=== PATIENT | male | born 1960 | race Caucasian/White ===

== ENCOUNTER → 2018-02-10 08:50 | Outpatient (CLI) | payer OTHER, SELFPAY ==
[2018-02-10 09:55] LABS: Influenza A and B by PCR Rapid Negative (Negative)
== END ==
PROVIDERS: Family Provider Internal Medicine; PCP Internal Medicine; Visit Provider Physician Assistant
DX: J06.9 Acute upper respiratory infection, unspecified (principal)
CPT/HCPCS: 87400

== ENCOUNTER → 2018-02-13 09:25 | Outpatient (CLI) | payer OTHER, SELFPAY | PROVIDERS: Family Provider Internal Medicine; PCP Internal Medicine; Visit Provider Physician Assistant | DX: H57.8 Other specified disorders of eye and adnexa (principal) | CPT/HCPCS: 87070; 87075; 87077; 87147; 87186; 87205 ==

== ENCOUNTER 2019-08-15 15:08 | Emergency (ER) | payer OTHER, SELFPAY ==
[2019-08-15 15:14] VITALS: BP 126/76; PULSE 80; RESP 20; TEMP 36.4; O2SAT 96
[2019-08-15 16:47] LABS: Add Manual Diff / Slide Review NO; Basophils Absolute Auto 100 /uL (0-100); Basophils Percent Auto 0.7 % (0-2); Eosinophils Absolute Auto 0 /uL (0-450); Eosinophils Percent Auto 0.5 % (2-4); Hematocrit 46.6 % (41-53); Hemoglobin 15.8 g/dL (13.5-17.5); Lymphocytes Absolute Auto 700 /uL (1100-4500); Lymphocytes Percent Auto 8.8 % (25-40); Mean Corpuscular HGB Conc 33.9 % (30-36); Mean Corpuscular Hemoglobin 30.5 PG (26-34); Mean Corpuscular Volume 89.9 fL (80-100); Monocytes Absolute Auto 1200 /uL (0-900); Monocytes Percent Auto 14.4 % (3-14); Neutrophils Absolute Auto 6500 /uL (1500-7000); Neutrophils Percent Auto 75.6 % (50-75); Platelet Count 187 X10^3/uL (150-400); Red Blood Cell Count 5.18 X10^6/uL (4.5-5.9); Red Cell Distribution Width 14.5 % (11.6-14.8); White Blood Cell Count 8.5 X10^3/uL (4.5-11.0)
[2019-08-15 16:59] LABS: Alanine Aminotransferase 29 IU/L (<50); Albumin 4.1 g/dL (3.5-5.0); Albumin Globulin Ratio 1.5 (1.0-2.8); Alkaline Phosphatase 75 U/L (38-126); Amylase 80 U/L (30-110); Aspartate Aminotransferase 32 IU/L (17-59); Bilirubin Total 0.9 mg/dL (0.2-1.3); Blood Urea Nitrogen 24 mg/dL (9-20); Calcium 9.1 mg/dL (8.4-10.2); Carbon Dioxide 28 mmol/L (22-32); Chloride 101 mmol/L (98-107); Estimated Glomerular Filt Rate > 60.0 mL/min (>60); Globulin 2.8 g/dL (1.7-4.1); Glucose 113 mg/dL (80-110); HEMOLYSIS 23 (0-50); Lipase 46 U/L (23-300); Potassium 3.7 mmol/L (3.4-5.1); Sodium 139 mmol/L (137-145); Total Protein 6.9 g/dL (6.3-8.2)
[2019-08-15 17:30] VITALS: BP 127/76; PULSE 64; RESP 16; O2SAT 96
[2019-08-15] MEDS: SODIUM CHLORIDE 0.9% 1,000 ML 1000 ML IV (17:31)
[2019-08-15 18:00] VITALS: BP 121/81; PULSE 66; RESP 18; O2SAT 98
[2019-08-15 18:40] LABS: Bacteria Urine None Seen; RBC Urine None Seen (0-5/HPF); WBC Urine None Seen (0-5/HPF)
[2019-08-15 18:47] LABS: Amorphous Sediment Urine 1+; Culture Indicated Urine Cult Not Indicated; Mucus Urine 1+ (Negative)
[2019-08-15 18:50] VITALS: BP 120/73; PULSE 62; RESP 16; O2SAT 98
--- NOTE | 2019-08-15 19:49 | ED_ITS ---
HPI - Abdominal Pain <KATE Juarez - Last Filed: 08/15/19 19:59> General Chief Complaint: Abdominal Pain Stated Complaint: L side abd pain- sent from [place] Time Seen by Provider: 08/15/19 16:22 Source: patient Mode of arrival: Ambulatory Limitations: no limitations History of Present Illness HPI narrative: The patient is a 59-year-old male nonsmoker with history of diverticulitis who presents with a chief complaint of ?I think I have diverticulitis again.He states he had some loose stools yesterday and then started having some left lower quadrant pain today. He denies any fevers nausea vomiting. He denies any chest pain or shortness of breath. He has not taken anything for pain. He states that he has had 3-4 episodes of diverticulitis. Related Data Home Medications Medication Instructions Recorded Confirmed gabapentin 300 mg capsule 600 mg PO BEDTIME cap 02/10/18 02/13/18 omeprazole 40 mg capsule,delayed 40 mg PO DAILY 02/10/18 02/13/18 release paroxetine HCl 20 mg tablet 20 mg PO DAILY 02/10/18 02/13/18 simvastatin 40 mg tablet 40 mg PO QAM 02/10/18 02/13/18 tadalafil 10 mg tablet 10 mg PO ONCE 02/10/18 02/13/18 triamterene 37.5 1 tab PO DAILY 02/10/18 02/13/18 mg-hydrochlorothiazide 25 mg tablet Previous Rx's Medication Instructions Recorded albuterol sulfate [Ventolin HFA] 2 puff INH Q4HP PRN #1 inh 09/07/16 amoxicillin 500 mg capsule 500 mg PO TID #30 cap 02/13/18 ciprofloxacin HCl [Cipro] 500 mg PO BID #20 tab 08/15/19 metronidazole [Flagyl] 500 mg PO TID #30 tab 08/15/19 ondansetron 4 mg PO Q6H PRN #20 tab 08/15/19 Allergies Allergy/AdvReac Type Severity Reaction Status Date / Time erythromycin base Allergy Mild ITCHING, Verified 02/13/18 08:22 [ERYTHROMYCIN BASE] ALL OVER BODY RESTLESSNESS Sulfa (Sulfonamide Allergy Mild ITCHING, Verified 02/13/18 08:22 Antibiotics) ALL OVER [SULFA (SULFONAMIDE RESTLESSNESS ANTIBIOTICS)] Review of Systems <KATE Juarez - Last Filed: 08/15/19 19:59> Review of Systems Narrative: GENERAL: Denies chills, fatigue, malaise, fever, sweats. HEENT: Denies sinus pain, ear pain, sore throat, difficulty swallowing, dizziness. RESPIRATORY: Denies dyspnea, cough, wheezing, hemoptysis, sputum. CARDIOVASCULAR: Denies chest pain, palpitations, orthopnea, edema, GASTROINTESTINAL: See HPI : Denies dysuria, frequency, incontinence, hematuria, urinary retention. MUSCULOSKELETAL: denies weakness, joint pain, or bony pain SKIN: Denies rash, skin lesions, or other NEUROLOGIC: Denies weakness, headache, numbness, change in speech, confusion, seizures, incoordination. PSYCHIATRIC: No concerning psychosocial issues. 12 point review of systems is negative except for those stated above Patient History <Charlene Arzate [facility] - Last Filed: 08/15/19 19:59> Social History Smoking Status: Never smoker alcohol intake frequency: 0-2 drinks per day Exam <Charlene Arzate [facility] - Last Filed: 08/15/19 19:59> Narrative Exam Narrative: GENERAL: This is a well-nourished, well-developed patient, no acute distress HEAD: Atraumatic. Normocephalic. No temporal or scalp tenderness. EYES: Pupils equal round and reactive. Extraocular motions intact. No scleral icterus. No injection or drainage. ENT: Nose without bleeding, purulent drainage or septal hematoma. Throat without erythema, tonsillar hypertrophy or exudate. Uvula midline. Airway patent. NECK: Trachea midline. No JVD or lymphadenopathy. Supple, nontender, no meningeal signs. CARDIOVASCULAR: Regular rate and rhythm without murmurs, gallops, or rubs. RESPIRATORY: Clear to auscultation. Breath sounds equal bilaterally. No wheezes, rales, or rhonchi. GASTROINTESTINAL: Abdomen soft, obese, tenderness to palpation left lower quadrant. nondistended. No hepato-splenomegaly, or palpable masses. No guarding. No pain to McBurney's point. Negative Thomas's EXTREMITIES: No clubbing, cyanosis, or edema. No joint tenderness, effusion, or edema noted. BACK: Nontender without deformity or crepitance. No flank tenderness. NEURO: AOx3. SKIN: No rash or erythema. Initial Vital Signs Initial Vital Signs: Vital Signs Temperature 97.5 F L 08/15/19 15:14 Pulse Rate 80 08/15/19 15:14 Respiratory Rate 20 08/15/19 15:14 Blood Pressure 126/76 08/15/19 15:14 Pulse Oximetry 96 08/15/19 15:14 <Angela Weiner DO - Last Filed: 08/23/19 09:07> Initial Vital Signs Initial Vital Signs: Vital Signs Temperature 97.5 F L 08/15/19 15:14 Pulse Rate 80 08/15/19 15:14 Respiratory Rate 20 08/15/19 15:14 Blood Pressure 126/76 08/15/19 15:14 Pulse Oximetry 96 08/15/19 15:14 Course <KATE Juarez - Last Filed: 08/15/19 19:59> Orders Ordered: Discontinued Medications Hydrocodone Bitart/Acetaminophen (Vicodin 5/325 Prepack) 1 bottle MISC SEEINSTR ONE Stop: 08/15/19 19:26 Last Admin: 08/15/19 19:55 Dose: 1 bottle Documented by: ELOISA Ciprofloxacin (Cipro) 500 mg PO NOW ONE Stop: 08/15/19 19:26 Last Admin: 08/15/19 19:56 Dose: 500 mg Documented by: ELOISA Sodium Chloride (Normal Saline 0.9%) 1,000 mls @ 1,000 mls/hr IV BOLUS ONE Stop: 08/15/19 18:13 Last Infusion: 08/15/19 19:37 Dose: 0 mls/hr Documented by: Admin: 08/15/19 17:31 Dose: 1,000 mls/hr Documented by: CYNDI Metronidazole (Metronidazole) 500 mg PO NOW ONE Stop: 08/15/19 19:26 Last Admin: 08/15/19 19:56 Dose: 500 mg Documented by: ELOISA Ondansetron HCl (Zofran Odt Prepack) 1 bottle MISC SEEINSTR ONE Stop: 08/15/19 19:26 Last Admin: 08/15/19 19:56 Dose: 1 bottle Documented by: ELOISA Vital Signs Vital signs: Vital Signs - 8 hr 08/15/19 15:14 08/15/19 17:30 08/15/19 18:00 Temperature 97.5 F L Pulse Rate 80 64 66 Respiratory Rate 20 16 18 Blood Pressure 126/76 Blood Pressure [Left Arm] 127/76 121/81 Pulse Oximetry 96 96 98 08/15/19 18:50 Temperature Pulse Rate 62 Respiratory Rate 16 Blood Pressure Blood Pressure [Left Arm] 120/73 Pulse Oximetry 98 <Angela Weiner DO - Last Filed: 08/23/19 09:07> Orders Ordered: Discontinued Medications Hydrocodone Bitart/Acetaminophen (Vicodin 5/325 Prepack) 1 bottle MISC SEEINSTR ONE Stop: 08/15/19 19:26 Last Admin: 08/15/19 19:55 Dose: 1 bottle Documented by: ELOISA Ciprofloxacin (Cipro) 500 mg PO NOW ONE Stop: 08/15/19 19:26 Last Admin: 08/15/19 19:56 Dose: 500 mg Documented by: ELOISA Sodium Chloride (Normal Saline 0.9%) 1,000 mls @ 1,000 mls/hr IV BOLUS ONE Stop: 08/15/19 18:13 Last Infusion: 08/15/19 19:37 Dose: 0 mls/hr Documented by: Admin: 08/15/19 17:31 Dose: 1,000 mls/hr Documented by: CYNDI Metronidazole (Metronidazole) 500 mg PO NOW ONE Stop: 08/15/19 19:26 Last Admin: 08/15/19 19:56 Dose: 500 mg Documented by: ELOISA Ondansetron HCl (Zofran Odt Prepack) 1 bottle MISC SEEINSTR ONE Stop: 08/15/19 19:26 Last Admin: 08/15/19 19:56 Dose: 1 bottle Documented by: ELOISA Vital Signs Vital signs: Vital Signs - 8 hr 08/15/19 15:14 08/15/19 17:30 08/15/19 18:00 Temperature 97.5 F L Pulse Rate 80 64 66 Respiratory Rate 20 16 18 Blood Pressure 126/76 Blood Pressure [Left Arm] 127/76 121/81 Pulse Oximetry 96 96 98 08/15/19 18:50 Temperature Pulse Rate 62 Respiratory Rate 16 Blood Pressure Blood Pressure [Left Arm] 120/73 Pulse Oximetry 98 MDM - Abdominal Pain <KATE Juarez - Last Filed: 08/15/19 19:59> Lab Data Result diagrams: 08/15/19 16:35 08/15/19 16:35 Labs: Lab Results 08/15/19 08/15/19 08/15/19 Range/Units 16:35 16:35 16:35 WBC 8.5 (4.5-11.0) X10^3/uL RBC 5.18 (4.5-5.9) X10^6/uL Hgb 15.8 (13.5-17.5) g/dL Hct 46.6 (41-53) % MCV 89.9 (80-100) fL MCH 30.5 (26-34) PG MCHC 33.9 (30-36) % RDW 14.5 (11.6-14.8) % Plt Count 187 (150-400) X10^3/uL Neut % (Auto) 75.6 H (50-75) % Lymph % (Auto) 8.8 L (25-40) % [place] % (Auto) 14.4 H (3-14) % Eos % (Auto) 0.5 L (2-4) % Baso % (Auto) 0.7 (0-2) % Neut # (Auto) 6500 (8843-8425) /uL Lymph # (Auto) 700 L (9210-8674) /uL [place] # (Auto) 1200 H (0-900) /uL Eos # (Auto) 0 (0-450) /uL Baso # (Auto) 100 (0-100) /uL Sodium 139 (137-145) mmol/L Potassium 3.7 (3.4-5.1) mmol/L Chloride 101 (98-107) mmol/L Carbon Dioxide 28 (22-32) mmol/L BUN 24 H (9-20) mg/dL Creatinine 1.20 (0.66-1.25) mg/dL Estimated GFR > 60.0 (>60) mL/min BUN/Creatinine Ratio 20.0 (6-22) Glucose 113 H (80-110) mg/dL Calcium 9.1 (8.4-10.2) mg/dL Total Bilirubin 0.9 (0.2-1.3) mg/dL AST 32 (17-59) IU/L ALT 29 (<50) IU/L Alkaline Phosphatase 75 (38-126) U/L Total Protein 6.9 (6.3-8.2) g/dL Albumin 4.1 (3.5-5.0) g/dL Globulin 2.8 (1.7-4.1) g/dL Albumin/Globulin Ratio 1.5 (1.0-2.8) Amylase 80 (30-110) U/L Lipase 46 (23-300) U/L Urine RBC (0-5/HPF) Urine WBC (0-5/HPF) Amorphous Sediment Urine Bacteria (None) Urine Mucus (Negative) Ur Culture Indicated? 08/15/19 Range/Units 18:20 WBC (4.5-11.0) X10^3/uL RBC (4.5-5.9) X10^6/uL Hgb (13.5-17.5) g/dL Hct (41-53) % MCV (80-100) fL MCH (26-34) PG MCHC (30-36) % RDW (11.6-14.8) % Plt Count (150-400) X10^3/uL Neut % (Auto) (50-75) % Lymph % (Auto) (25-40) % [place] % (Auto) (3-14) % Eos % (Auto) (2-4) % Baso % (Auto) (0-2) % Neut # (Auto) (4094-3968) /uL Lymph # (Auto) (5008-4202) /uL [place] # (Auto) (0-900) /uL Eos # (Auto) (0-450) /uL Baso # (Auto) (0-100) /uL Sodium (137-145) mmol/L Potassium (3.4-5.1) mmol/L Chloride (98-107) mmol/L Carbon Dioxide (22-32) mmol/L BUN (9-20) mg/dL Creatinine (0.66-1.25) mg/dL Estimated GFR (>60) mL/min BUN/Creatinine Ratio (6-22) Glucose (80-110) mg/dL Calcium (8.4-10.2) mg/dL Total Bilirubin (0.2-1.3) mg/dL AST (17-59) IU/L ALT (<50) IU/L Alkaline Phosphatase (38-126) U/L Total Protein (6.3-8.2) g/dL Albumin (3.5-5.0) g/dL Globulin (1.7-4.1) g/dL Albumin/Globulin Ratio (1.0-2.8) Amylase (30-110) U/L Lipase (23-300) U/L Urine RBC None seen (0-5/HPF) Urine WBC None seen (0-5/HPF) Amorphous Sediment 1+ Urine Bacteria None seen (None) Urine Mucus 1+ H (Negative) Ur Culture Indicated? Cult not indicated Point of care testing: Urine Dip Bedside Urine Glucose Negative Bedside Urine Bilirubin - Negative Bedside Urine Ketone - Negative Urine Specific [place] 1.015 Bedside Urine Occult Blood - Negative Bedside Urine pH 6 Bedside Urine Protein + 30 Bedside Urine Urobilinogen - Negative Bedside Urine Nitrite - Negative Bedside Urine Leukocytes - Negative Esterase MDM Narrative Medical decision making narrative: The patient is a 5-year-old male with history of diverticulitis who presents with a chief complaint of left lower quadrant pain. He states he has a history of diverticulitis and feels as though this is the same. Lab work is stable, no leukocytosis. Patient declined imaging today. I discussed that there can be complications from diverticulitis such as abscess, perforation or other etiologies that causes abdominal pain. However he persistently declined imaging, so preemptively treat him for diverticulitis. Urine shows no signs of infection. No placed him on Flagyl and Cipro. Discussed risk of tendon issues with Cipro. Patient does not want pain medication prescription, but states he will use a take-home pack of [place]. Discussed that this can be constipating and sedating. Did discuss at length strict return precautions to the emergency department including fever, worsening abdominal pain etc, especially given that he declined imaging today. Encourage PCP follow-up. Patient has no questions or concerns upon discharge and states understanding of return precautions as well as follow-up care. <Angela Weiner, DO - Last Filed: 08/23/19 09:07> Lab Data Labs: Lab Results 08/15/19 08/15/19 08/15/19 Range/Units 16:35 16:35 16:35 WBC 8.5 (4.5-11.0) X10^3/uL RBC 5.18 (4.5-5.9) X10^6/uL Hgb 15.8 (13.5-17.5) g/dL Hct 46.6 (41-53) % MCV 89.9 (80-100) fL MCH 30.5 (26-34) PG MCHC 33.9 (30-36) % RDW 14.5 (11.6-14.8) % Plt Count 187 (150-400) X10^3/uL Neut % (Auto) 75.6 H (50-75) % Lymph % (Auto) 8.8 L (25-40) % [place] % (Auto) 14.4 H (3-14) % Eos % (Auto) 0.5 L (2-4) % Baso % (Auto) 0.7 (0-2) % Neut # (Auto) 6500 (8354-2003) /uL Lymph # (Auto) 700 L (3434-8958) /uL [place] # (Auto) 1200 H (0-900) /uL Eos # (Auto) 0 (0-450) /uL Baso # (Auto) 100 (0-100) /uL Sodium 139 (137-145) mmol/L Potassium 3.7 (3.4-5.1) mmol/L Chloride 101 (98-107) mmol/L Carbon Dioxide 28 (22-32) mmol/L BUN 24 H (9-20) mg/dL Creatinine 1.20 (0.66-1.25) mg/dL Estimated GFR > 60.0 (>60) mL/min BUN/Creatinine Ratio 20.0 (6-22) Glucose 113 H (80-110) mg/dL Calcium 9.1 (8.4-10.2) mg/dL Total Bilirubin 0.9 (0.2-1.3) mg/dL AST 32 (17-59) IU/L ALT 29 (<50) IU/L Alkaline Phosphatase 75 (38-126) U/L Total Protein 6.9 (6.3-8.2) g/dL Albumin 4.1 (3.5-5.0) g/dL Globulin 2.8 (1.7-4.1) g/dL Albumin/Globulin Ratio 1.5 (1.0-2.8) Amylase 80 (30-110) U/L Lipase 46 (23-300) U/L Urine RBC (0-5/HPF) Urine WBC (0-5/HPF) Amorphous Sediment Urine Bacteria (None) Urine Mucus (Negative) Ur Culture Indicated? 08/15/19 Range/Units 18:20 WBC (4.5-11.0) X10^3/uL RBC (4.5-5.9) X10^6/uL Hgb (13.5-17.5) g/dL Hct (41-53) % MCV (80-100) fL MCH (26-34) PG MCHC (30-36) % RDW (11.6-14.8) % Plt Count (150-400) X10^3/uL Neut % (Auto) (50-75) % Lymph % (Auto) (25-40) % [place] % (Auto) (3-14) % Eos % (Auto) (2-4) % Baso % (Auto) (0-2) % Neut # (Auto) (7794-4280) /uL Lymph # (Auto) (0495-0355) /uL [place] # (Auto) (0-900) /uL Eos # (Auto) (0-450) /uL Baso # (Auto) (0-100) /uL Sodium (137-145) mmol/L Potassium (3.4-5.1) mmol/L Chloride (98-107) mmol/L Carbon Dioxide (22-32) mmol/L BUN (9-20) mg/dL Creatinine (0.66-1.25) mg/dL Estimated GFR (>60) mL/min BUN/Creatinine Ratio (6-22) Glucose (80-110) mg/dL Calcium (8.4-10.2) mg/dL Total Bilirubin (0.2-1.3) mg/dL AST (17-59) IU/L ALT (<50) IU/L Alkaline Phosphatase (38-126) U/L Total Protein (6.3-8.2) g/dL Albumin (3.5-5.0) g/dL Globulin (1.7-4.1) g/dL Albumin/Globulin Ratio (1.0-2.8) Amylase (30-110) U/L Lipase (23-300) U/L Urine RBC None seen (0-5/HPF) Urine WBC None seen (0-5/HPF) Amorphous Sediment 1+ Urine Bacteria None seen (None) Urine Mucus 1+ H (Negative) Ur Culture Indicated? Cult not indicated Point of care testing: Urine Dip Bedside Urine Glucose Negative Bedside Urine Bilirubin - Negative Bedside Urine Ketone - Negative Urine Specific [place] 1.015 Bedside Urine Occult Blood - Negative Bedside Urine pH 6 Bedside Urine Protein + 30 Bedside Urine Urobilinogen - Negative Bedside Urine Nitrite - Negative Bedside Urine Leukocytes - Negative Esterase Discharge Plan Departure Patient Disposition: Home Clinical Impression: Diverticulitis Abdominal pain Qualifiers: Abdominal location: left lower quadrant Qualified Code(s): R10.32 - Left lower quadrant pain Discharge Date/Time: 08/15/19 20:06 Instructions: Diverticulitis, DI for Diverticulitis, DI for Abdominal Pain- Adult Activity Restrictions/Additional Instructions: I have sent 3 prescriptions to [facility] on [address]. This includes to antibiotics as well as a nausea medication. We have given you a take-home pack of [place]. You have been given a take-home pack narcotic medications. While on these medications you cannot drive or operate heavy machinery. Additionally you cannot sign legal documents or perform any duties such as this. Many people get constipated on narcotic medications so it would be advisable to discuss stool softeners with the pharmacist when you rate supervisor your prescription. Please remember that since he elected to not have imaging today for your diverticulitis, please come back to the emergency department if you have any acute concerns or changes such as inability keep down fluids, high fevers etc Please follow up with primary care provider in the next few days. Prescriptions: New ciprofloxacin HCl [Cipro] 500 mg tablet 500 mg PO BID Qty: 20 RF: 0 metronidazole [Flagyl] 500 mg tablet 500 mg PO TID Qty: 30 RF: 0 ondansetron 4 mg tablet,disintegrating 4 mg PO Q6H PRN (Reason: nausea and vomiting) Qty: 20 RF: 0 No Action paroxetine HCl 20 mg tablet 20 mg PO DAILY RF: 0 tadalafil [Cialis] 10 mg tablet 10 mg PO ONCE RF: 0 triamterene-hydrochlorothiazid 37.5-25 mg tablet 1 tab PO DAILY RF: 0 omeprazole 40 mg capsule,delayed release(DR/EC) 40 mg PO DAILY RF: 0 gabapentin 300 mg capsule 600 mg PO BEDTIME RF: 0 simvastatin 40 mg tablet 40 mg PO QAM RF: 0 amoxicillin 500 mg capsule 500 mg PO TID Qty: 30 RF: 0 albuterol sulfate [Ventolin HFA] 90 MCG/PUFF HFA aerosol inhaler 2 puff INH Q4HP PRNQty: 1 RF: 0 Referrals: Ronnie Dugan MD [Primary Care Provider] -
[2019-08-15] MEDS: HYDROCODONE/ACET 5/325 PREPACK 1 BOTTLE MISC (19:55)
[2019-08-15] MEDS: metroNIDAZOLE 250 MG TABLET 500 MG PO (19:56)
[2019-08-15] MEDS: CIPROFLOXACIN 500 MG TABLET PO (19:56)
[2019-08-15] MEDS: ONDANSETRON 4 MG ODT PREPACK 1 BOTTLE MISC (19:56)
[2019-08-15 20:06] VITALS: BP 122/77; PULSE 59; RESP 16; O2SAT 99
== END 2019-08-15 20:06 | disposition home or self-care (01) ==
PROVIDERS: Emergency Medicine; Emergency Provider Nurse Practitioner Family; Family Provider Internal Medicine; PCP Internal Medicine
DX: K57.92 Diverticulitis of intestine, part unspecified, without perforation or abscess without bleeding (principal); R10.32 Left lower quadrant pain
CPT/HCPCS: 36415; 80053; 81003; 81015; 82150; 83690; 85025; 99283

== ENCOUNTER → 2019-08-31 08:00 | Outpatient (CLI) | payer OTHER, SELFPAY ==
[2019-08-31 09:21] LABS: Cholesterol 252 mg/dL (140-199); HDL Cholesterol 38 mg/dL (40-60); LDL Cholesterol Calculated 189 mg/dL (<100); Triglycerides 126 mg/dL (35-150)
== END ==
PROVIDERS: PCP Internal Medicine; Visit Provider Internal Medicine
DX: E78.00 Pure hypercholesterolemia, unspecified (principal)
CPT/HCPCS: 36415; 80061

== ENCOUNTER → 2019-10-21 14:49 | Outpatient (CLI) | payer OTHER, SELFPAY ==
--- NOTE | 2019-10-21 14:54 | DIET.PN ---
Dietary Progress Note Assessment: 59y M s/p gastric banding 7y ago went from 315# down to 275# but now back up to 317#. 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 HT: WT: 317# BMI: 28yo noticed was gaining wt @220# got down to 190# through 4d/w workouts and slimfast PA: has been on and off with working out at a gym, has not joined gym since moving to the area 5y ago but found success in the past going 4d/w. Labs: TC 252 H, LDL 189 H, HDL 38 L Usual Day: 6am wakes, drives to work 7am [employer]:sausage burrito, hash brown, large coke, 2 chocolate chip cookies 830 comes home, watches tv- cheez-its, salted mixed nuts, jalapeno cheddar cheetos, kitkat or reeses pb cup sometimes naps leftovers, fish and chips, tries to eat at home if possible doesn't often snack in afternoon if out doing errands with : [employer], [employer], [employer] for lunch Dinner 5pm: stir winters with chicken, ground beef tacos, spaghetti, 10pm watches tv in evening until 2am- rarely snacks in bed, usually get 4hrs sleep ideal 8hrs sleep 11pm-7am rich foods, caffeine, and spicy keep him awake at night Nutrition Diagnosis: obesity r/t undesirable food choices and emotional eating aeb pt eats fast food daily, has dessert and full calorie soda with breakfast, pt reports emotional eating to deal with unemployment and son who is recovering addict, pt currently >300# despite gastric banding. Interventions: Got hx of pt weight and eating habits. Discussed emotional eating. Introduced pt to Hunger Scale, how to use tool to assess physiological hunger. Introduced Mindful Eating concept, discussed eye, ear, heart hungers etc, pt resonated with many of them. Discussed survival reward center of brain and how it was a useful tool in the distant path to identify foods containing glucose, but now we over stimulate that center with easy to acquire processed foods. Pt Goals 1. In the next two weeks, Jonathan will go to [employer] and do a trial membership to see if it is a good fit. 2. 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 3. To reduce caloric intake, Jonathan will do diet or stevia sweetened sodas instead of full sugar sodas, and drink more cold water. 4. To support sleep hygiene, Jonathan will get 8 hours of sleep each night and turn off the television for sleep. 5. Pt will use hunger scale and mindful eating handout to increase awareness of emotional eating habits. Monitoring/Evaluations: f/u in 2 weeks to problem solve snacks, address barriers, create physical activity plan, do sugar cube activity, possible phone liban?
== END ==
PROVIDERS: PCP Internal Medicine; Referring Provider Internal Medicine; Visit Provider Internal Medicine
DX: E66.09 Other obesity due to excess calories (principal); Z98.84 Bariatric surgery status; Z71.3 Dietary counseling and surveillance
CPT/HCPCS: 97802

== ENCOUNTER → 2019-11-02 14:05 | Outpatient (CLI) | payer OTHER, SELFPAY ==
--- NOTE | 2019-11-02 14:09 | DIET.PN ---
Dietary Progress Note Assessment: 59y M c morbid obesity here for f/u appt for weight loss. Pt has LE edema and takes medication, wants to lose weight to reduce stress on body. Was in [place] -Fri of last week so did not make it to check out [employer] gym. Walking more than usual because in Switched to calorie free beverages, slipped up just once with a [employer] Sleeping habits have improved, turning tv off at 11pm instead of staying up until 2am 20 minute walk with dog daily, working on walking with WT: 317# Nutrition Diagnosis: obesity r/t undesirable food choices and emotional eating aeb pt eats fast food daily, has dessert and full calorie soda with breakfast, pt reports emotional eating to deal with unemployment and son who is recovering addict, pt currently >300# despite gastric banding. Interventions: EER: 2,000 kcal and 100g PRO/d Goals: 1. Jonathan will go to [employer] at 10am on Friday, Nov 03, 2019 to see if a good fit. 2. To attain 150 minutes physical activity per day, Jonathan will walk dog 20 min daily plus one other physical activity 7 days per week. 3. To support nourishing body and reducing weight, Jonathan will start cooking more at home to reduce amount of fast food he eats. 4. Jonathan will start tracking food intake, will try to stick to 2,000 kcals/d and log hunger before and after each eating occasion. Monitoring/Evaluations: f/u 3w
== END ==
PROVIDERS: PCP Internal Medicine; Referring Provider Internal Medicine; Visit Provider Internal Medicine
DX: E66.01 Morbid (severe) obesity due to excess calories (principal); R60.0 Localized edema; Z98.84 Bariatric surgery status; Z71.3 Dietary counseling and surveillance
CPT/HCPCS: 97802

== ENCOUNTER → 2019-11-18 09:49 | Outpatient (CLI) | payer OTHER, SELFPAY ==
[2019-11-18 10:39] LABS: Cholesterol 160 mg/dL (140-199); HDL Cholesterol 45 mg/dL (40-60); LDL Cholesterol Calculated 98 mg/dL (<100); Triglycerides 83 mg/dL (35-150)
== END ==
PROVIDERS: PCP Internal Medicine; Referring Provider Internal Medicine; Visit Provider Internal Medicine
DX: E78.2 Mixed hyperlipidemia (principal)
CPT/HCPCS: 36415; 80061

== ENCOUNTER → 2020-02-22 14:53 | Outpatient (CLI) | payer OTHER, SELFPAY ==
--- NOTE | 2020-02-22 15:00 | DIET.PN ---
Dietary Progress Note Assessment: f/u c 59y M for help c weight loss r/t morbid obesity and chronic pain. B: 2 Bob Antolin breakfast wraps, grapes then stress eats, 1 cup high carb snack mix over 15 minutes, couple cookies, diet soda L: been trying to have salads D: 630-7pm does meal planning for dinners each week with , Swati, tried pollack burgers having difficulty falling asleep at night. HT: 6'1 WT: 301# Weight Goal: 250# Interventions: 1. Look through cabinets and fridge and remove or finish all foods which are triggers for overeating and stress snacking. 2. Take 10 minute walking/biking break everyday. 3. Work on healthy snacks for midmorning (celery c low fat cream cheese or peanut butter) 4. Sign up at [facility] gym to do elliptical 20-30 min and 10-20 min weight training Monitoring/Evaluations: f/u in 2w for problem solving and to check weight
== END ==
PROVIDERS: PCP Internal Medicine; Referring Provider Internal Medicine; Visit Provider Internal Medicine
DX: E66.01 Morbid (severe) obesity due to excess calories (principal)

== ENCOUNTER → 2020-03-07 14:56 | Outpatient (CLI) | payer OTHER, SELFPAY ==
--- NOTE | 2020-03-07 15:53 | DIET.PN ---
Dietary Progress Note Assessment: f/u pt has much insight and is metacognating on the way he uses food as coping mechanism for stress. Pt read the ultraprocessed food article with great insight on how added sugar is hiding in food and the obesogenic effects of artificial sweeteners. Pt has been going on daily walks with his dog and trying to build a habit though is not yet comfortable going to gym because of pandemic. Pt is weight stable from last visit though has come a long way since last visit in being mindful about his food intake type and quantity. Pt has been snacking more on veggies and fruits over carbs like snack mix or chips. HT: 73 WT: 301# Monitoring/Evaluations: f/u in 2w to discuss plate method and added sugars
== END ==
PROVIDERS: PCP Internal Medicine; Referring Provider Internal Medicine; Visit Provider Internal Medicine
DX: E66.9 Obesity, unspecified (principal); Z68.39 Body mass index [BMI] 39.0-39.9, adult; Z71.3 Dietary counseling and surveillance
CPT/HCPCS: 97802

== ENCOUNTER → 2020-03-21 15:55 | Outpatient (CLI) | payer OTHER, SELFPAY ==
--- NOTE | 2020-03-21 16:57 | DIET.PN ---
Dietary Progress Note RD f/u for morbid obesity, today we invited Jonathan's to join our session to learn about balanced plate model and to problem solve shared meals. Discussed balanced meals and how to incorporate more fruits and vegetables. Targeted replacing some starchy vegetables and grains with fruit and nonstarchy vegetables. Jonathan and his discussed sinhala style meals and tacos with good alternatives such as using lettuce wrap instead of shells and not eating breadsticks with pasta meals. Jonathan thought to add an Swedish tomato and cucumber salad to his breakfast each day. They left the office with plan to go shopping for some vegetables on their way home. f/u in 2 weeks
== END ==
PROVIDERS: PCP Internal Medicine; Referring Provider Internal Medicine; Visit Provider Internal Medicine
DX: E66.01 Morbid (severe) obesity due to excess calories (principal); Z71.3 Dietary counseling and surveillance
CPT/HCPCS: 97802

== ENCOUNTER → 2020-04-11 14:57 | Outpatient (CLI) | payer OTHER, SELFPAY ==
--- NOTE | 2020-04-11 16:47 | DIET.PN ---
Dietary Progress Note RD f/u for morbid obesity s/p gastric banding. Pt has lost 9# since our last visit 3w ago (current wt: 292#). Pt looks visibly improved c thinning of face, arms, and legs, as well as less redness and puffiness, visible duran. Pt in good spirits today, happy about number on scale, but more so about the realizations he is having about his health and relationship to food. Pt reports many positive changes starting with honoring both his hunger and fullness, eating nutrient dense foods and filling half his plate c F/V. Pt spent weekend out and about with spouse which usually would include multiple fast food meals. Pt did eat breakfast out c but they split an omelet c hashbrowns and did not finish hashbrowns. Pt resisted purchasing candy at check outs of multiple stores with positive self reflection on past habits. Pt has been going outside for a walk with his dog daily between 9-10am for 15 min. Pt realizes this is not enough physical activity but is setting new habits and is happy with current progress. Pt has come to realizations that he does not need to eat kale or run marathons to be healthy, but to be more mindful of his intake and to nourish his body. Pt prepared homemade barnes salad for when his got home from work yesterday and used instapot to make perfect hard boiled eggs. Pt remarked his son ate a meal which pt had prepared for himself to eat later, but pt was happy that his son ate the healthy option and enjoyed it. Pt would like to continue meeting q3w c RD as weight loss continues to progress. Pt is making wonderful, lasting progress and having accelerated wt loss.
== END ==
PROVIDERS: PCP Internal Medicine; Referring Provider Internal Medicine; Visit Provider Internal Medicine
DX: E66.01 Morbid (severe) obesity due to excess calories (principal); Z98.84 Bariatric surgery status; Z71.3 Dietary counseling and surveillance
CPT/HCPCS: 97802

== ENCOUNTER → 2020-05-02 14:47 | Outpatient (CLI) | payer OTHER, SELFPAY ==
--- NOTE | 2020-05-02 14:54 | DIET.PN ---
Dietary Progress Note Pt is +7# since our last visit 3w ago. Pt is disappointed by this as he has had great momentum recently. Pt feels like he has been slipping into drinking soda and eating full meals out on weekends, has been having a jennie 5d/w and is unable to quantify the calories/carbs in it, has been eating fewer vegetables. Pt is consistent with taking 15 minute break to walk outside with his dog during the work week. Pt is eating far fewer processed foods than prior to our meetings. Pt has a treadmill and realizes increased physical activity is important to see change on the scale. Pt will carve out 30 minutes at the end of his workday to walk on treadmill and watch a show 5x/w. Pt will keep working on increasing vegetable intake to ensure he is not overeating high kcal foods at meals and snacks. Interventions: 1. Instructed pt on carbohydrate counting to assist in creating portion control limits for high carb foods like pasta, rice, and potatoes. Set pt to 45g CHO per meal with equivalent cup sizes. Pt will experiment with this. 2. Discussed importance of soluble fiber for health and weight regulation. Pt does not like many soluble fiber foods. Pt likes refried beans. Discussed adding vegetarian refried beans to taco nights or on a taco salad. 3. Encouraged pt on his process of weight loss and getting healthy. Discussed periods of weight loss actually being dismotivating because we feel we can participate in old patterns as reward. Pt is using gains and setbacks as insight to his cycling habits to develop lifelong strategies for weight management. F/u in 3w to assess progress and barriers.
== END ==
PROVIDERS: PCP Internal Medicine; Referring Provider Internal Medicine; Visit Provider Internal Medicine
DX: Z71.3 Dietary counseling and surveillance (principal)
CPT/HCPCS: 97803

== ENCOUNTER → 2020-05-26 14:28 | Outpatient (CLI) | payer OTHER, SELFPAY ==
[2020-05-26 16:02] LABS: Alanine Aminotransferase 20 IU/L (<50); Albumin 3.7 g/dL (3.5-5.0); Albumin Globulin Ratio 1.5 (1.0-2.8); Alkaline Phosphatase 70 U/L (38-126); Aspartate Aminotransferase 23 IU/L (17-59); BUN Creatinine Ratio 22.6 (6-22); Bilirubin Total 0.5 mg/dL (0.2-1.3); Blood Urea Nitrogen 19 mg/dL (9-20); Calcium 8.7 mg/dL (8.4-10.2); Carbon Dioxide 29 mmol/L (22-32); Chloride 106 mmol/L (98-107); Estimated Glomerular Filt Rate > 60.0 mL/min (>60); Globulin 2.4 g/dL (1.7-4.1); Glucose 129 mg/dL (80-110); HEMOLYSIS < 15 (0-50); Potassium 3.9 mmol/L (3.4-5.1); Sodium 141 mmol/L (137-145); Total Protein 6.1 g/dL (6.3-8.2)
== END ==
PROVIDERS: PCP Internal Medicine; Referring Provider Internal Medicine; Visit Provider Internal Medicine
DX: I10 Essential (primary) hypertension (principal); E78.00 Pure hypercholesterolemia, unspecified
CPT/HCPCS: 36415; 80053

== ENCOUNTER → 2020-06-02 08:43 | Outpatient (CLI) | payer OTHER, SELFPAY ==
[2020-06-04 15:29] LABS: COVID19 Sendout Not Detected (Not Detect)
== END ==
PROVIDERS: PCP Internal Medicine; Visit Provider Physician Assistant
DX: Z11.59 Encounter for screening for other viral diseases (principal)
CPT/HCPCS: 87635

== ENCOUNTER 2020-06-05 06:44 | Day surgery (SDC) | payer OTHER, SELFPAY ==
[2020-06-05 07:11] VITALS: BMI 38.1
[2020-06-05 07:20] VITALS: BP 142/76; PULSE 54; RESP 20; TEMP 36.3; O2SAT 97
[2020-06-05] MEDS: LACTATED RINGERS 1,000 ML 200 ML IV (07:27)
--- NOTE | 2020-06-05 07:44 | P.HP_ITS ---
History of Present Illness History of Present Illness Date Patient Seen: 06/05/20 Time Patient Seen: 07:44 Chief complaint: SD Narrative: The patient presents for colorectal sreening. He had a previous colonoscopy 5 years ago at [facility] which demonstrated adenomatous polyps which were removed. No personal or family history of colon cancer. On further history denies any recent gastrointestinal symptoms. No nausea, vomiting, abdominal pain, loss of appetite, unexplained weight loss, change in bowel habits, diarrhea, constipation, melena, hematochezia, or bright red blood per rectum. Patient History Medical History Obesity (Acute) ANAND on CPAP (Acute) Surgical History Status post gastric banding surgery (Acute) Family & Social History Social History: household members spouse Tobacco & Substance use: Smoking Status Never smoker alcohol intake current alcohol intake frequency a few times a week Substance Use Type does not use Meds Home Medications and Allergies Home Medications Medication Instructions Recorded Confirmed Type gabapentin 300 mg capsule 600 mg PO BEDTIME cap 02/10/18 06/05/20 History omeprazole 40 mg capsule,delayed 40 mg PO DAILY 02/10/18 06/05/20 History release paroxetine HCl 20 mg tablet 20 mg PO DAILY 02/10/18 06/05/20 History simvastatin 40 mg tablet 40 mg PO QAM 02/10/18 06/05/20 History tadalafil 10 mg tablet 10 mg PO ONCE 02/10/18 06/05/20 History amoxicillin 875 mg-potassium 1 tab PO BID #20 tab 05/24/20 06/05/20 Rx clavulanate 125 mg tablet Allergies Allergy/AdvReac Type Severity Reaction Status Date / Time erythromycin base Allergy Mild ITCHING, Verified 06/05/20 07:10 [ERYTHROMYCIN BASE] ALL OVER BODY RESTLESSNESS Sulfa (Sulfonamide Allergy Mild ITCHING, Verified 06/05/20 07:10 Antibiotics) ALL OVER [SULFA (SULFONAMIDE RESTLESSNESS ANTIBIOTICS)] Review of Systems Review of Systems Narrative: A 10 point review of systems is negative except as noted in the HPI Exam Vital Signs (past 8 hours): - 06/05/20 07:20 Temperature 97.4 F L Pulse Rate 54 L Respiratory Rate 20 Blood Pressure 142/76 H Pulse Oximetry 97 Oxygen Delivery Method Room Air Narrative Exam Narrative: General-no acute distress, morbidly obese male HEENT-moist mucous membranes, no scleral icterus Neck-supple, no lymphadenopathy Chest- non labored respirations, clear to auscultation bilaterally Cardiac-regular rate no peripheral edema Abdomen-soft, nontender, non distended Extremities-warm, well perfused Neurological-alert and oriented, no focal deficits Assessment & Plan Assessment and plan (1) Screening for colon cancer: Status: Acute Assessment & Plan narrative: The patient requires colorectal screening and colonoscopy is recommended. Technical details were discussed. Risks, benefits, alternatives explained. Risks including but not limited to myocardial infarction, aspiration, bleeding, pain, missed lesion, incomplete examination, need for further radiographic studies, colonic perforation, and need for major abdominal surgery were discussed. All questions were answered to their satisfaction, and they are in agreement with this plan.
[2020-06-05] MEDS: MIDAZOLAM 5 MG/5 ML VIAL IV (07:51)
[2020-06-05] MEDS: fentaNYL 250 MCG/5 ML INJ IV (07:51)
--- NOTE | 2020-06-05 08:12 | PM.OP.ENDO ---
Operative Date/Time/Diagnoses Date of procedure: 06/05/20 Time of procedure: 08:12 Pre-op diagnosis: Screening colonoscopy Post-op diagnosis: same Procedure & Clinicians Study performed: Colonoscopy Same procedure as scheduled: Yes Indications: 60-year-old male history of adenomatous polyps here for routine screening colonoscopy Surgeon: Lloyd Yin Procedure Notes SCOAP/Timeout: Performed Procedure in detail: Patient placed in left lateral recumbent position. Time out was performed. Procedural sedation was administered with Versed and Fentanyl. Examination began with a thorough inspection of the perianal area there was no evidence of fissures, fistulae, external hemorrhoids or cutaneous malignancy. The colonoscopy scope was then placed into the rectum the the lumen was insufflated with air. The scope was carefully advanced forward. Ultimately the cecum was intubated and confirmed by identification of the ileocecal valve, the appendiceal orifice and the confluence of the taenia. The scope was then slowly withdrawn examining colon thoroughly in all directions. In the rectum the rectal columns were identified and retroflexion of the scope was performed for inspection of the distal rectum and anal canal. The colonoscopy was notable for the followin. Quality of the preparation-fair 2. Sigmoid diverticulosis 3. No masses or polyps Scope withdrawal time: 7 Sedation minutes: 19 Findings: diverticulosis Specimen(s): none sent Complications: none Impression: Normal colon Post-procedure Recommendations: Colonscopy in 10 years and High fiber diet Disposition: same day surgery
[2020-06-05 08:16] VITALS: BP 133/78; PULSE 74; RESP 19; TEMP 37; O2SAT 92
[2020-06-05 08:20] VITALS: BP 128/77; PULSE 79; RESP 18; O2SAT 93
[2020-06-05 08:25] VITALS: BP 125/85; PULSE 72; RESP 10; O2SAT 93
[2020-06-05 08:30] VITALS: BP 124/81; PULSE 70; RESP 16; O2SAT 95
--- NOTE | 2020-06-05 08:41 | SUR.PHASEI ---
Awake, comfortable, HOB elevated. Bilateral hearing aids in place. Juice given.
--- NOTE | 2020-06-05 08:47 | SUR.PHASEI ---
0816 late entry Received pt w/report that he had sinus arrhythmia prior to procedure. When questioned, RN reported that no followup was recommended at that time. 0814 Pt states that he was not previously aware of arrhythmia. Copy of procedure rhythm strip given to the patient.
--- NOTE | 2020-06-05 09:00 | SUR.PHASEII ---
called as pt ready to go, pt left unit in stable condition.
== END 2020-06-05 09:01 | disposition home or self-care (01) ==
PROVIDERS: PCP Internal Medicine; Referring Provider Surgery; Visit Provider Surgery
PROC: 0DJD8ZZ Inspection of Lower Intestinal Tract, Via Natural or Artificial Opening Endoscopic (ICD-10-PCS; CPT 45378; principal; 2020-06-05 07:45)
DX: Z12.11 Encounter for screening for malignant neoplasm of colon (principal); G47.33 Obstructive sleep apnea (adult) (pediatric); E66.9 Obesity, unspecified; K57.30 Diverticulosis of large intestine without perforation or abscess without bleeding
CPT/HCPCS: 45378; 99152; J2250; J3010

== ENCOUNTER → 2020-06-09 07:35 | Outpatient (CLI) | payer OTHER, SELFPAY ==
[2020-06-09 09:25] LABS: BUN Creatinine Ratio 16.5 (6-22); Blood Urea Nitrogen 13 mg/dL (9-20); Calcium 8.9 mg/dL (8.4-10.2); Carbon Dioxide 32 mmol/L (22-32); Chloride 103 mmol/L (98-107); Estimated Glomerular Filt Rate > 60.0 mL/min (>60); Glucose 76 mg/dL (80-110); HEMOLYSIS < 15 (0-50); Magnesium 2.2 mg/dL (1.6-2.3); Potassium 3.9 mmol/L (3.4-5.1); Sodium 141 mmol/L (137-145)
== END ==
PROVIDERS: PCP Internal Medicine; Referring Provider Internal Medicine; Visit Provider Internal Medicine
DX: I10 Essential (primary) hypertension (principal); E78.00 Pure hypercholesterolemia, unspecified; E78.2 Mixed hyperlipidemia
CPT/HCPCS: 36415; 80048; 83735

== ENCOUNTER → 2020-06-16 14:53 | Outpatient (CLI) | payer OTHER, SELFPAY ==
--- NOTE | 2020-06-16 15:00 | DIET.PN ---
Dietary Progress Note 60y M here for RD f/u regarding morbid obesity. Pt was happy to go see his PCP and show 17# weight loss since start of pandemic. Current weight 304#. Pt hasn't been able to start exercising because he feels he is too tired after work. Pt is under time pressure at work and wants to excel at his job so is not taking break to walk outside with his dog and has noticed he is snacking more at this workspace. Pt has good personal insight to realize these things are happening. Appointment spent problem solving and using motivational interviewing to help pt understand his stress levels will go down with moderate exercise and he will be closer to his personal wellbeing/health goals which will benefit him. Pt will try to take his usual dog walking break at 930am and will try to walk on the treadmill for 5 minutes after work to build up his practice. Pt continues to make good food choices and is not bringing junk food into the house via stress buying like he had before. F/U in 3 weeks.
== END ==
PROVIDERS: PCP Internal Medicine; Referring Provider Internal Medicine; Visit Provider Internal Medicine
DX: E66.01 Morbid (severe) obesity due to excess calories (principal)

== ENCOUNTER → 2020-07-17 14:58 | Outpatient (CLI) | payer OTHER, SELFPAY ==
--- NOTE | 2020-07-17 15:00 | DIET.PN ---
Dietary Progress Note Assessment: 60y M returning for help c weight management. Pt has had a month of heavy work deadlines but managed to lose four pounds by trying to stick to healthy eating though he was not going on daily walks. Pts deadline ended Jul 14 and this am he resumed walking with his dog. Pt feels he needs to focus on his exercise to make good progress with weight loss as he is doing pretty well with diet. Pt looking into Pict machine to keep in his home office. WT: 300# (-4# in 1mo) f/u week of Thanksgiving to assess progress and problem solve barriers
== END ==
PROVIDERS: PCP Internal Medicine; Referring Provider Internal Medicine; Visit Provider Internal Medicine
DX: E66.9 Obesity, unspecified (principal); Z71.3 Dietary counseling and surveillance
CPT/HCPCS: 97803

== ENCOUNTER → 2020-08-08 15:09 | Outpatient (CLI) | payer OTHER, SELFPAY ==
--- NOTE | 2020-08-08 15:12 | DIET.PN ---
Dietary Progress Note Assessment: Telehealth f/u for pt c morbid obesity after gastric sleeve surgery. Pt new to telehealth, discussed c RD positives and negatives over past 3w since last visit. Pt reports vet told him the family dog gained 14# after finishing chemo so supplementing c pumpkin puree and going on more walks each day. Pts likes black beans better than refried beans, so he has been cooking with them more and investigating new recipes. Pt has been in contact with relatives from [place], remarking their hearty lifestyle that is not sedintary and without excuses. Pt would like more of this in his own life. Pt talking about wanting to start mental health talk therapy. Discussed options such as BHIP here at and worksite options through his employer. Pt eager to create some physical activity goals today as he realizes shopping for a stationary bike is unrealistic and has a working treadmill already. Pt came up with goals with guidance from RD 1. 20 minutes per day three days per week (M, W, F) first week on treadmill ideally after work and before. 2. 30 minutes per day three days per week second week on treadmill 3. 35 minutes per day four days per week third week on treadmill and five days per week moving forward. 4. To address his lower F/V consumption now that it is falltime, pt will start prepping his vegetables and fruits before putting in fridge to make them ready to eat and attractive. Monitoring/Evaluations: f/u in 3w via telehealth to assess progress and problem solve barriers.
== END ==
PROVIDERS: PCP Internal Medicine; Referring Provider Internal Medicine; Visit Provider Internal Medicine
DX: E66.01 Morbid (severe) obesity due to excess calories (principal); Z98.84 Bariatric surgery status
CPT/HCPCS: 97803

== ENCOUNTER → 2020-08-29 16:05 | Outpatient (CLI) | payer OTHER, SELFPAY ==
--- NOTE | 2020-08-29 16:32 | DIET.PN ---
Dietary Progress Note Assessment: 60y M attending telehealth f/u for morbid obesity s/p gastric banding 8y ago. Pt started at 315# and got down to 275# but started working c RD at 317#. Pt had good momentum dropping to 300# but has gotten overwhelmed by the global pandemic and feels he would like to pause our work together to focus on mental health either through a provider in his insurance or the BHIP program at . Pt feels he knows the nutrition information and has the tools to exercise but is having difficulty getting started on an exercise program. Pt has a treadmill and a dog to walk but finds himself looking up stationary bikes on the internet but has good insight to realize purchasing gym equipment is different than using it. 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 Pt reports having unresolved stress regarding a son who has hx of heroin use and lives in the home. RD Impression: Pt has made huge strides in his diet. He began our sessions by eating [employer] every morning: sausage burrito, hash brown, large regular cola, and 2 chocolate chip cookies. Would snack all day on high carb/high sugar foods: cheetos, cheese crackers, salted mixed nuts, chocolate. He would again eat fast food at lunch or on weekends: [employer], panda express, pizza factory. Pt no longer eats McDonalds for breakfast, has started drinking Premier Protein drinks for breakfast and tries to snack on vegetables or unsalted nuts. He makes a big salad or small entree for lunch at home and he and his have started experimenting with adding beans and other fiber rich foods along with vegetables to their dinners. Pt intermittently walks his dog and had a good routine of going out with her at 9:30am daily but this has become less frequent as the weather turned colder and wet. Pt would like to walk 30 min on his treadmill daily at 2:30pm. This is the end of his workday but before his returns from her job. Pt has been unable to start this healthy habit despite trying a variety of methods: setting timer, pairing with specific tv show or podcast. Nutrition Diagnosis: Resolving morbid obesity r/t undesirable food choices and emotional eating aeb pt eats fast food daily, has dessert and full calorie soda with breakfast, pt reports emotional eating to deal with unemployment and son who is recovering addict, pt currently >300# despite gastric banding. Monitoring/Evaluations: pt will schedule f/u RD appt when he feels he would like continued help with diet.
== END ==
PROVIDERS: PCP Internal Medicine; Referring Provider Internal Medicine; Visit Provider Internal Medicine
DX: E66.01 Morbid (severe) obesity due to excess calories (principal); Z98.84 Bariatric surgery status; Z71.3 Dietary counseling and surveillance
CPT/HCPCS: 97803

== ENCOUNTER → 2020-10-05 14:39 | Outpatient (ROUT) | payer OTHER, SELFPAY ==
[2020-10-05 15:01] LABS: Add Manual Diff / Slide Review NO; Basophils Absolute Auto 100 /uL (0-100); Basophils Percent Auto 0.6 % (0-2); Eosinophils Absolute Auto 100 /uL (0-450); Eosinophils Percent Auto 1.4 % (2-4); Hematocrit 46.8 % (41-53); Hemoglobin 15.7 g/dL (13.5-17.5); Lymphocytes Absolute Auto 1200 /uL (1100-4500); Mean Corpuscular HGB Conc 33.4 % (30-36); Mean Corpuscular Hemoglobin 31.1 PG (26-34); Monocytes Absolute Auto 900 /uL (0-900); Monocytes Percent Auto 10.9 % (3-14); Neutrophils Absolute Auto 6100 /uL (1500-7000); Neutrophils Percent Auto 73.1 % (50-75); Platelet Count 185 X10^3/uL (150-400); Red Blood Cell Count 5.04 X10^6/uL (4.5-5.9); Red Cell Distribution Width 14.5 % (11.6-14.8); White Blood Cell Count 8.4 X10^3/uL (4.5-11.0)
[2020-10-05 15:13] LABS: Hemoglobin A1C% w Est Avg Glu 6.1 % (4.0-6.0)
[2020-10-05 15:40] LABS: TSH w/ Reflex to FT4 2.76 uIU/mL (0.47-4.68)
[2020-10-05 17:37] LABS: Alanine Aminotransferase 29 IU/L (<50); Albumin 4.1 g/dL (3.5-5.0); Albumin Globulin Ratio 1.6 (1.0-2.8); Alkaline Phosphatase 85 U/L (38-126); Aspartate Aminotransferase 31 IU/L (17-59); BUN Creatinine Ratio 28.2 (6-22); Bilirubin Total 0.5 mg/dL (0.2-1.3); Blood Urea Nitrogen 22 mg/dL (9-20); Calcium 9.6 mg/dL (8.4-10.2); Carbon Dioxide 30 mmol/L (22-32); Chloride 103 mmol/L (98-107); Cholesterol 195 mg/dL (140-199); Estimated Glomerular Filt Rate > 60.0 mL/min (>60); Globulin 2.5 g/dL (1.7-4.1); Glucose 101 mg/dL (80-110); HDL Cholesterol 48 mg/dL (40-60); HEMOLYSIS < 15 (0-50); LDL Cholesterol Calculated 100 mg/dL (<100); Sodium 137 mmol/L (137-145); Total Protein 6.6 g/dL (6.3-8.2); Triglycerides 233 mg/dL (35-150)
== END ==
PROVIDERS: PCP Internal Medicine; Visit Provider Internal Medicine
DX: E78.2 Mixed hyperlipidemia (principal); E74.39 Other disorders of intestinal carbohydrate absorption; I10 Essential (primary) hypertension; Z68.41 Body mass index [BMI] 40.0-44.9, adult
CPT/HCPCS: 80053; 80061; 83036; 84443; 85025

== ENCOUNTER → 2020-12-13 14:54 | Outpatient (CLI) | payer OTHER, SELFPAY ==
[2020-12-13] MEDS: COVID-19 VACC #1, MRNA(MOD) 100 MCG/0.5 ML VIAL IM (15:03)
== END ==
PROVIDERS: PCP Internal Medicine; Visit Provider Internal Medicine
DX: Z23 Encounter for immunization (principal)
CPT/HCPCS: 0011A; 91301

== ENCOUNTER → 2021-01-10 14:56 | Outpatient (CLI) | payer OTHER, SELFPAY ==
[2021-01-10] MEDS: COVID-19 VACC #2, MRNA(MOD) 100 MCG/0.5 ML VIAL IM (15:26)
== END ==
PROVIDERS: PCP Internal Medicine; Visit Provider Internal Medicine
DX: Z23 Encounter for immunization (principal)
CPT/HCPCS: 0012A; 91301

== ENCOUNTER 2021-02-03 12:56 | Emergency (ER) | payer OTHER, SELFPAY ==
--- NOTE | 2021-02-03 13:09 | ED_ITS ---
HPI - CPR General Chief Complaint: Cardiac Arrest/CPR Stated Complaint: Code Blue Time Seen by Provider: 02/03/21 13:09 Source: family () and EMS Mode of arrival: EMS History of Present Illness HPI narrative: This is a 60-year-old male who was signing up for and membership at [employer] when he collapsed. CPR was initiated and patient received 180 ED shock facility prior to EMS and patient was in VFib arrest initially and received at the x5 in total from EMS as well as 3 additional shocks. Patient also received 450 mg of amiodarone, bicarb as well as magnesium. They do not have any medical history for the patient. Patient received approximately 35-40 minutes of CPR prior assuming care of patient here in the emergency department. Patient's arrived shortly thereafter and was able to give the patient has history of dyslipidemia he had been complaining of some chest discomfort after eating the last several meals. Per patient had have an episode of trigeminy after a colonoscopy and had echo and EKG that according to his were normal. Related Data Home Medications Medication Instructions Recorded Confirmed gabapentin 300 mg capsule 600 mg PO BEDTIME cap 02/10/18 06/05/20 omeprazole 40 mg capsule,delayed 40 mg PO DAILY 02/10/18 06/05/20 release paroxetine HCl 20 mg tablet 20 mg PO DAILY 02/10/18 06/05/20 simvastatin 40 mg tablet 40 mg PO QAM 02/10/18 06/05/20 tadalafil 10 mg tablet 10 mg PO ONCE 02/10/18 06/05/20 Previous Rx's Medication Instructions Recorded amoxicillin 875 mg-potassium 1 tab PO BID #20 tab 05/24/20 clavulanate 125 mg tablet Allergies Allergy/AdvReac Type Severity Reaction Status Date / Time erythromycin base Allergy Mild ITCHING, Verified 02/03/21 13:27 [ERYTHROMYCIN BASE] ALL OVER BODY RESTLESSNESS Sulfa (Sulfonamide Allergy Mild ITCHING, Verified 02/03/21 13:27 Antibiotics) ALL OVER [SULFA (SULFONAMIDE RESTLESSNESS ANTIBIOTICS)] Review of Systems Review of Systems ROS Unobtainable: Unobtainable due to medical condition Patient History Medical History (Updated 02/03/21 @ 13:36 by Charlene Schwartz DO) Obesity ANAND on CPAP Surgical History Status post gastric banding surgery Social History household members: spouse Smoking Status: Never smoker alcohol intake: current Smoking Status: Never smoker alcohol intake frequency: a few times a week Substance Use Type: does not use Exam Narrative Exam Narrative: GENERAL: Intubated male in severe distress with elevated BMI. Patient appears mottled with some some cyanosis of the face and upper chest with pallor of the extremities. HEENT: Head normocephalic, atraumatic, face symmetric, moist mucous membranes NECK: Supple CARDIOVASCULAR: No heart sounds on examination. CPR is in progress. RESPIRATORY: Breath sounds equal bilaterally with BVM ABDOMEN: Soft, nondistended. EXTREMITIES: No deformities. No pulse on examination. NEUROLOGICAL: GCS of 3 SKIN: Warm, dry, with skin changes as noted above Scores GCS Mary Lou coma scale eye opening: None [place] coma scale verbal response: None [place] coma scale motor response: None [place] coma scale total score: 3 Course Orders Ordered: ED Orders 02/03/21 13:00 COVID19 -Nasal swab/Pre-Proc Stat MDM - Cardiac Arrest/CPR Lab Data Attestation: I reviewed the patient's lab results. Labs: Lab Results 02/03/21 Range/Units 13:00 SARS-CoV-2 (PCR) Negative (Negative) MDM Narrative Medical decision making narrative: This is a 60-year-old male who arrives in cardiac arrest. Patient had a witnessed arrest at a local gym. Patient was not working out but had actually gone to sign up for a membership at the gym. Patient appeared to be in VFib arrest for EMS initially he received 4 shocks outside the hospital which then became a PEA rhythm. He also received amiodarone, bicarb and magnesium prior to arrival. During continued CPR patient was in GA arrest without a shockable rhythm, he continued to receive epinephrine per ACLS protocol with an end-tidal CO2 in the 30s for EMS as well as here in the department. Place of ET appears appropriate with ETCO2, breath sounds bilaterally with good chest rise. Patient had approximately 50 minutes CPR without ROSC and on bedside ultrasound which was somewhat difficult to initially obtain there does not appear to be cardiac squeeze. was at bedside and able to give some additional history and CPR was stopped and time of was ultimately called at 1:02 p.m. [employer] Control Room Operator was contacted and is not a case. Donation services was contacted. Patient primary care is Dr. Dugan and spoke with Gem Pham who is covering, she will notify Dr. Dugan. Critical Care Time Critical Care Time Critical Care Time: Yes Total Critical Care Time: 25 Attestation: The high probability of a clinically significant, sudden or life threatening deterioration of the [cardiac] system(s) required my full and direct attention, intervention and personal management. The aggregate critical care time was [] minutes. This time is in addition to time spent performing reported procedures but includes the following: [x] Data Review and interpretation [x] Patient assessment and monitoring of vital signs [x] Documentation [x] Medication orders and management Discharge Plan Departure Patient Disposition: Clinical Impression: Cardiac arrest
--- NOTE | 2021-02-03 13:14 | PC.NURSE ---
Patient arrived with CPR in progress. Code team in room 1 upon patinet arrival. See code sheet
--- NOTE | 2021-02-03 13:16 | PC.NURSE ---
at bedside, she is employee and asked we get a co worker who is a personal friend to be with her (completed) as well as to call Kevin Art (pastoral care) to be at bedside. Given water and juice.
[2021-02-03 13:22] LABS: COVID19 -Nasal RAPID Negative (Negative)
--- NOTE | 2021-02-03 13:39 | RT ---
I assisted code team with CPR on Mr Perez. Code was called by Dr Schwartz at appx 1300.
--- NOTE | 2021-02-03 13:59 | PC.NURSE ---
checked on and son. Both denies needs at this time.
--- NOTE | 2021-02-03 14:33 | PC.NURSE ---
contacted Organ donation @ 1320, Case # [id number]. Accepted. contacted [facility] coroners office: Spoke w/ Galilea who declined case. Case # [id number] Continue to check in with family who is at bedside. Coping as well as can be expected. Unable to reach pastoral counselor.
--- NOTE | 2021-02-03 16:31 | PC.NURSE ---
ETT, IO removed per family request. (vocational examiner has declined case)
--- NOTE | 2021-02-03 16:48 | PC.NURSE ---
[facility] [employer] called per pt's request. [phone]. Their eta is [id number].
--- NOTE | 2021-02-03 17:52 | PC.NURSE ---
Kevin from [facility] here to see family at their request.
--- NOTE | 2021-02-03 19:23 | PC.NURSE ---
released to [facility] [facility].
--- NOTE | 2021-02-03 19:28 | PC.NURSE ---
and family verbalized appreciation for care, denies needs at this time.
== END 2021-02-03 19:23 | disposition expired ==
PROVIDERS: Emergency Provider Emergency Medicine; PCP Internal Medicine
DX: I46.9 Cardiac arrest, cause unspecified (principal); Z20.822 Contact with and (suspected) exposure to COVID-19
CPT/HCPCS: 87635; 92950; 99284; 99285; C9803; J0171